=== PATIENT | female | born 1965 | race Caucasian/White ===

== ENCOUNTER 2018-02-20 13:32 | Inpatient (IN) ==
[2018-02-20 14:22] LABS: Hematocrit 40.6 % (35.3-44.9); Hemoglobin 12.3 g/dL (11.5-15.4); Mean Corpuscular HGB Conc 30.3 g/dL (31.6-35.5); Mean Corpuscular Hemoglobin 24.8 pg (28.0-33.3); Mean Platelet Volume 10.4 fL (9.4-12.4); Platelet Count 289 K/mcL (140-400); Red Blood Count 4.95 M/mcL (3.82-4.97); Red Cell Distribution Width 15.6 % (11.5-14.5)
[2018-02-20 14:47] LABS: Troponin I < 0.03 ng/mL (< 0.04)
[2018-02-20] MEDS ORDERED: Ipratropium/Albuterol Neb 3 ML IH ONE (14:49)
[2018-02-20 14:58] LABS: BUN/Creatinine Ratio 8 (6-26); Blood Urea Nitrogen 8 mg/dL (6-20); Calcium 9.3 mg/dL (8.6-10.3); Carbon Dioxide 25 mEq/L (23-29); Chloride 107 mEq/L (98-107); Glucose 126 mg/dL (70-105); Osmolality,Calculated 292 (280-300); Potassium 3.6 mEq/L (3.5-5.1); Sodium 141 mEq/L (136-145); eGFR For Non-African Americans 55 (> 60)
--- NOTE | 2018-02-20 15:05 | Emergency Department Note ---
Disposition Clinical Impression: Cough, Abnormal EKG Chest pain Qualifiers: Chest pain type: unspecified Qualified Code(s): R07.9 - Chest pain, unspecified Disposition: Admitted As Inpatient Condition: Good Time of Disposition: 15:08 SOB HPI - General Chief Complaint: ED Shortness of Breath/Dyspnea Stated Complaint: "cough,sob,wheezing" Time Seen by Provider: 02/20/18 14:12 Source: patient Mode of arrival: ambulatory Limitations: no limitations Nursing Notes Reviewed: Yes Vital Signs Reviewed: Yes - History of Present Illness 53-year-old female persists for evaluation of dyspnea. Patient was at urgent care earlier today and treated for possible pneumonia. Was given nebs, steroids and a prescription for antibiotics. Patient was told to come to the hospital for chest x-ray however the patient checked into the ED. Patient notes 2 weeks of dyspnea with productive cough. Notes chest pain related the cough around the ribs. Patient denies any fevers but does note chills. No nausea or vomiting or diaphoresis. Former smoker. - Related Data Home Medications Medication Instructions Recorded Confirmed Atorvastatin Calcium [Lipitor] 20 mg PO HS 09/22/17 02/20/18 Carbidopa/Levodopa 1 tab PO DAILY 09/22/17 02/20/18 [Carbidopa-Levodopa 25-100 Tab] Cholecalciferol (D-3) [Vitamin D] 1,000 unit PO DAILY 09/22/17 02/20/18 LevETIRAcetam [Keppra] 1,000 mg PO BID 09/22/17 02/20/18 Levothyroxine Sodium 125 mcg PO DAILY 09/22/17 02/20/18 Losartan/Hydrochlorothiazide 1 tab PO DAILY 09/22/17 02/20/18 [Losartan-Hctz 100-25 mg Tab] Metoprolol Succinate [Toprol Xl] 25 mg PO DAILY 09/22/17 02/20/18 Montelukast [Singulair] 10 mg PO HS 09/22/17 02/20/18 [place]-3/Dha/Epa/Fish Oil [[place] 3 1 cap PO DAILY 09/22/17 02/20/18 500 Softgel] Omeprazole [PriLOSEC] 20 mg PO DAILY 09/22/17 02/20/18 Tiotropium [Spiriva] 18 mcg PO DAILY 09/22/17 02/20/18 Topiramate [Topamax] 50 mg PO BID 09/22/17 02/20/18 FLUoxetine HCl [Fluoxetine HCl] 40 mg PO DAILY 02/20/18 02/20/18 Allergies Allergy/AdvReac Type Severity Reaction Status Date / Time No Known Allergies Allergy Verified 02/20/18 16:36 All systems ED: reviewed and negative except as stated. Constitutional: Reports: chills Cardiovascular: Denies: chest pain Respiratory: Reports: cough, dyspnea, sputum production Gastrointestinal: Denies: abdominal pain, nausea, vomiting Past Medical History - Past Medical History Source: patient Medical history: Reports: COPD, CVA, GERD, hypertension, seizures Surgical history: Reports: appendectomy, Psychiatric history: Reports: anxiety - Social History Smoking Status: Current every day smoker Smokeless Tobacco Status: No Alcohol use: Reports: occasionally Drug use: Reports: none Physical Exam - General Limitations: no limitations General appearance: alert, in no apparent distress - Head Head exam: atraumatic, normocephalic, normal inspection - Eye Eye exam: Present: normal appearance, PERRL, EOMI - ENT ENT exam: normal exam, mucous membranes moist - Neck Neck exam: Present: normal inspection - Chest Chest inspection: Present: normal inspection, symmetric chest wall rise - Respiratory Respiratory exam: Present: wheezes, prolonged expiratory phase. Absent: respiratory distress - Cardiovascular Cardiovascular exam: Present: regular rate, normal rhythm - Abdominal Exam Abdominal exam: Present: soft, Non-Tender - Extremities Exam Extremities exam: Present: normal inspection. Absent: pedal edema - Expanded Lower Extremity Exam Neurovascular/Tendon exam: Present: normal capillary refill - Neurological Exam Neurological exam: Present: alert, oriented X3 - Skin Skin exam: Present: warm, dry, intact, normal color Course Course Narrative: Patient seen and examined. Patient's in no acute distress. Triage labs were ordered. Patient likely has acute bronchitis. Will be given nebs, steroids and antibiotics. Disposition to follow-up with her primary care doctor. - Reevaluation(s) Reevaluation #1: Patient's resting comfortably. Outpatient plan of care discussed with her. Patient will be discharged with instructions to follow-up. Time: 15:41 Reevaluation #2: Patient EKG reviewed show some new T-wave inversions from prior. Given these findings the patient's cough may possibly related to something cardiac. Patient was offered admission. Time: 15:48 Vital Signs Temperature 98.1 F 02/20/18 13:42 Pulse Rate 76 02/20/18 13:42 Respiratory Rate 20 02/20/18 13:42 Blood Pressure 183/98 02/20/18 13:42 O2 Sat by Pulse Oximetry 92 02/20/18 13:42 Temperature 98.1 F 02/20/18 15:08 Pulse Rate 86 02/20/18 16:25 Respiratory Rate 16 02/20/18 17:38 Blood Pressure 139/81 02/20/18 17:38 O2 Sat by Pulse Oximetry 94 02/20/18 16:25 Oxygen Delivery Oxygen Delivery Nasal Cannula Shortness of Breath/Dyspnea - [facility] Narrative Medical decision making narrative: Patient presents for concerns of cough and shortness of breath. Patient's symptoms are most likely consistent with bronchitis. Given the patient's productive sputum patient will be started on antibiotics. Recommend aerosols, steroids as well as antibiotics. This point the patient's had an unremarkable ED evaluation. Patient does not have pneumonia on chest x-ray. Low suspicion or concern for ACS or PE. Patient's appropriate for discharge home with primary care physician follow-up. Patient does have oxygen available at home that she wears at night. - Lab Data Lab results reviewed: Yes I reviewed the patient's lab results. Result diagrams: 02/20/18 14:08 02/20/18 14:08 Lab Results 02/20/18 02/20/18 02/20/18 Range/Units 14:08 14:08 14:08 WBC 11.5 H (4.3-11.1) K/mcL RBC 4.95 (3.82-4.97) M/mcL Hgb 12.3 (11.5-15.4) g/dL Hct 40.6 (35.3-44.9) % MCV 82.0 L (83.0-100.0) fL MCH 24.8 L (28.0-33.3) pg MCHC 30.3 L (31.6-35.5) g/dL RDW 15.6 H (11.5-14.5) % Plt Count 289 (140-400) K/mcL MPV 10.4 (9.4-12.4) fL Sodium 141 (136-145) mEq/L Potassium 3.6 (3.5-5.1) mEq/L Chloride 107 (98-107) mEq/L Carbon Dioxide 25 (23-29) mEq/L BUN 8 (6-20) mg/dL Creatinine 1.04 (0.60-1.20) mg/dL Est GFR ( Amer) > 60 (> 60) Est GFR (Non-Af Amer) 55 L (> 60) BUN/Creatinine Ratio 8 (6-26) Glucose 126 H (70-105) mg/dL Calculated Osmolality 292 (280-300) Lactic Acid 0.9 (0.5-2.2) mmol/L Calcium 9.3 (8.6-10.3) mg/dL Troponin I < 0.03 (< 0.04) ng/mL B-Natriuretic Peptide (Less than 100) pg/mL 02/20/18 Range/Units 14:08 WBC (4.3-11.1) K/mcL RBC (3.82-4.97) M/mcL Hgb (11.5-15.4) g/dL Hct (35.3-44.9) % MCV (83.0-100.0) fL MCH (28.0-33.3) pg MCHC (31.6-35.5) g/dL RDW (11.5-14.5) % Plt Count (140-400) K/mcL MPV (9.4-12.4) fL Sodium (136-145) mEq/L Potassium (3.5-5.1) mEq/L Chloride (98-107) mEq/L Carbon Dioxide (23-29) mEq/L BUN (6-20) mg/dL Creatinine (0.60-1.20) mg/dL Est GFR ( Amer) (> 60) Est GFR (Non-Af Amer) (> 60) BUN/Creatinine Ratio (6-26) Glucose (70-105) mg/dL Calculated Osmolality (280-300) Lactic Acid (0.5-2.2) mmol/L Calcium (8.6-10.3) mg/dL Troponin I (< 0.04) ng/mL B-Natriuretic Peptide 63 (Less than 100) pg/mL - Radiology Data Radiology results reviewed: Yes I reviewed the patient's radiology results. Chest X-Ray 02/20/18 13:45 IMPRESSION: No evidence of acute cardiopulmonary disease. D/ / Evelio Louis MD / Evelio Louis MD Interpreting Provider: Evelio Louis MD - EKG Data EKG attestation: Yes I reviewed and interpreted this EKG. EKG shows normal: Reports: sinus rhythm Rate: Reports: normal Rhythm: Reports: NSR [place]/QRS: Reports: normal T wave inversions noted in: Reports: v1, v2, v3, v4 When compared to previous EKG there are: changes noted S.B.ASal - Jose Juan Situation: Demographics Background: Presenting Complaint Assessment: Vital Signs, Course and respsone to treatment, Patient/Family Expectation Recommendation: Barrier(s) to disposition, Recommendation based on pending studies, treatments, or consults S.B.ASal Report Given to: Dr. Janusz Manzano Repor Time: 16:56
--- NOTE | 2018-02-20 15:52 | Emergency Department Note ---
Disposition Clinical Impression: Cough, Abnormal EKG, Chest pain Disposition: Admitted As Inpatient Condition: Good General Adult HPI - General Chief complaint: ED Shortness of Breath/Dyspnea Stated complaint: "cough,sob,wheezing" Time Seen by Provider: 02/20/18 14:12 Source: patient Mode of arrival: ambulatory Limitations: no limitations - History of Present Illness Pain Scale: 7 - Related Data Home Medications Medication Instructions Recorded Confirmed Atorvastatin Calcium [Lipitor] 20 mg PO HS 09/22/17 02/20/18 Carbidopa/Levodopa 1 tab PO DAILY 09/22/17 02/20/18 [Carbidopa-Levodopa 25-100 Tab] Cholecalciferol (D-3) [Vitamin D] 1,000 unit PO DAILY 09/22/17 02/20/18 LevETIRAcetam [Keppra] 1,000 mg PO BID 09/22/17 02/20/18 Levothyroxine Sodium 125 mcg PO DAILY 09/22/17 02/20/18 Losartan/Hydrochlorothiazide 1 tab PO DAILY 09/22/17 02/20/18 [Losartan-Hctz 100-25 mg Tab] Metoprolol Succinate [Toprol Xl] 25 mg PO DAILY 09/22/17 02/20/18 Montelukast [Singulair] 10 mg PO HS 09/22/17 02/20/18 [place]-3/Dha/Epa/Fish Oil [[place] 3 1 cap PO DAILY 09/22/17 02/20/18 500 Softgel] Omeprazole [PriLOSEC] 20 mg PO DAILY 09/22/17 02/20/18 Tiotropium [Spiriva] 18 mcg PO DAILY 09/22/17 02/20/18 Topiramate [Topamax] 50 mg PO BID 09/22/17 02/20/18 FLUoxetine HCl [Fluoxetine HCl] 40 mg PO DAILY 02/20/18 02/20/18 Allergies Allergy/AdvReac Type Severity Reaction Status Date / Time No Known Allergies Allergy Verified 02/20/18 16:36 Constitutional: Reports: chills Cardiovascular: Denies: chest pain Respiratory: Reports: cough, dyspnea, sputum production Gastrointestinal: Denies: abdominal pain, nausea, vomiting Past Medical History - Past Medical History Medical history: Reports: COPD, CVA, GERD, hypertension, seizures Surgical history: Reports: appendectomy, Psychiatric history: Reports: anxiety - Social History Smoking Status: Current every day smoker Smokeless Tobacco Status: No Alcohol use: Reports: occasionally Drug use: Reports: none Physical Exam - General Limitations: no limitations General appearance: alert, in no apparent distress Course Vital Signs Temperature 98.1 F 02/20/18 13:42 Pulse Rate 76 02/20/18 13:42 Respiratory Rate 20 02/20/18 13:42 Blood Pressure 183/98 02/20/18 13:42 O2 Sat by Pulse Oximetry 92 02/20/18 13:42 Temperature 98.1 F 02/20/18 15:08 Pulse Rate 86 02/20/18 16:25 Respiratory Rate 16 02/20/18 17:38 Blood Pressure 139/81 02/20/18 17:38 O2 Sat by Pulse Oximetry 94 02/20/18 16:25 Oxygen Delivery Oxygen Delivery Nasal Cannula Medical Decision Making - Lab Data Result diagrams: 02/20/18 14:08 02/20/18 14:08 Lab Results 02/20/18 02/20/18 02/20/18 Range/Units 14:08 14:08 14:08 WBC 11.5 H (4.3-11.1) K/mcL RBC 4.95 (3.82-4.97) M/mcL Hgb 12.3 (11.5-15.4) g/dL Hct 40.6 (35.3-44.9) % MCV 82.0 L (83.0-100.0) fL MCH 24.8 L (28.0-33.3) pg MCHC 30.3 L (31.6-35.5) g/dL RDW 15.6 H (11.5-14.5) % Plt Count 289 (140-400) K/mcL MPV 10.4 (9.4-12.4) fL Sodium 141 (136-145) mEq/L Potassium 3.6 (3.5-5.1) mEq/L Chloride 107 (98-107) mEq/L Carbon Dioxide 25 (23-29) mEq/L BUN 8 (6-20) mg/dL Creatinine 1.04 (0.60-1.20) mg/dL Est GFR ( Amer) > 60 (> 60) Est GFR (Non-Af Amer) 55 L (> 60) BUN/Creatinine Ratio 8 (6-26) Glucose 126 H (70-105) mg/dL Calculated Osmolality 292 (280-300) Lactic Acid 0.9 (0.5-2.2) mmol/L Calcium 9.3 (8.6-10.3) mg/dL Troponin I < 0.03 (< 0.04) ng/mL B-Natriuretic Peptide (Less than 100) pg/mL 02/20/18 Range/Units 14:08 WBC (4.3-11.1) K/mcL RBC (3.82-4.97) M/mcL Hgb (11.5-15.4) g/dL Hct (35.3-44.9) % MCV (83.0-100.0) fL MCH (28.0-33.3) pg MCHC (31.6-35.5) g/dL RDW (11.5-14.5) % Plt Count (140-400) K/mcL MPV (9.4-12.4) fL Sodium (136-145) mEq/L Potassium (3.5-5.1) mEq/L Chloride (98-107) mEq/L Carbon Dioxide (23-29) mEq/L BUN (6-20) mg/dL Creatinine (0.60-1.20) mg/dL Est GFR ( Amer) (> 60) Est GFR (Non-Af Amer) (> 60) BUN/Creatinine Ratio (6-26) Glucose (70-105) mg/dL Calculated Osmolality (280-300) Lactic Acid (0.5-2.2) mmol/L Calcium (8.6-10.3) mg/dL Troponin I (< 0.04) ng/mL B-Natriuretic Peptide 63 (Less than 100) pg/mL Critical Care Time Critical Care Time: No Attestation Statement - Attestation Attestation: I examined this patient and my medical decision-making was reviewed with the Resident Physician. I agree with the documented findings, disposition and treatment plan as described except to the extent set forth below. Patient to the ED combining a cough. Onset 3 weeks ago. Keeping her up at night. Patient states she went to the urgent care today. She states they were concerned about wanted to do a chest x-ray which they could not do there. They recommended her to come to the ED. On examination she is well appearing sitting on the side of the bed. Lung sounds diminished. Plan. Chest x-ray EKG. Cardiac workup. Patient with changes on her EKG. She has some anteroseptal ST depressions and T -wave inversions. These are new. Patient is having some atypical cardiac symptoms. She is contemplating admission at this time. Patient admitted to medicine.
[2018-02-20] MEDS ORDERED: Aspirin 325 MG TABLET PO ONE (16:29)
[2018-02-20] MEDS ORDERED: Naloxone 0.4 MG/ML INJ IVP PRN (18:06)
[2018-02-20] MEDS ORDERED: Ipratropium/Albuterol Neb 3 ML IH PRN (18:14)
--- NOTE | 2018-02-20 18:21 | Internal Med History&Physical ---
Date of Encounter: 02/20/18 Time of Encounter: 17:30 Internal Medicine - H&P: HPI Chief complaint: Cough Admitted From: Home Plans for Post Hospital Care: Home History of present illness: Ms. Livingston is a 53 year old female with past medical history significant for hypertension, hyperlipidemia, CVA, COPD, asthma, hypothyroidism, depression , and seizures who presents from urgent care to obtain xray for suspected pneumonia. Since she has been having productive cough with green sputum, shortness of breath with wheezing, and sore throat. Denies any chest pain, abdominal pain, diarrhea, nausea, vomiting, diaphoresis, or fever. States she has back pain around her ribs when coughing. Denies any alleviating or exacerbating factors. No home treatment. Received breathing treatment in ER which she states greatly improved her symptoms. ER planned to discharge patient as they reported her chest xray without pneumonia but reported her EKG showed new anteroseptal ST depressions and T wave inversions. Patient continues to deny any chest pain. Follows up regularly every six months with neurology Dr Spain for seizures. States she does not think she has had a seizure since September 2017. Discussed patient with Dr Boudreaux. Past Med Surg Social Fam HX - Past Medical History Medical history: asthma, COPD, CVA, GERD, hypertension, seizures, thyroid disease Additional medical history: seasonal alergies,anxiety,hypothyroidism,obesity, cervical/neck pain C2-3-4 fused together,O2@2L nc at night Psychiatric history: anxiety, depression - Past Surgical History Surgical History: appendectomy, Additional surgical history: carpal tunnel surgery right,cyst removal left, wisdom teeth extraction,D&C,teeth extraction - Social History Smoking Status: Former smoker Smokeless Tobacco Status: No Alcohol use: rarely Drug use: none Internal Medicine - H&P: Meds Atorvastatin Calcium [Lipitor] 20 mg PO HS 09/22/17 [History] Carbidopa/Levodopa [Carbidopa-Levodopa 25-100 Tab] 1 tab PO DAILY 09/22/17 [ History] Cholecalciferol (D-3) [Vitamin D] 1,000 unit PO DAILY 09/22/17 [History] LevETIRAcetam [Keppra] 1,000 mg PO BID 09/22/17 [History] Levothyroxine Sodium 125 mcg PO DAILY 09/22/17 [History] Losartan/Hydrochlorothiazide [Losartan-Hctz 100-25 mg Tab] 1 tab PO DAILY [History] Metoprolol Succinate [Toprol Xl] 25 mg PO DAILY 09/22/17 [History] Montelukast [Singulair] 10 mg PO HS 09/22/17 [History] [place]-3/Dha/Epa/Fish Oil [[place] 3 500 Softgel] 1 cap PO DAILY 09/22/17 [History] Omeprazole [PriLOSEC] 20 mg PO DAILY 09/22/17 [History] Tiotropium [Spiriva] 18 mcg PO DAILY 09/22/17 [History] Topiramate [Topamax] 50 mg PO BID 09/22/17 [History] FLUoxetine HCl [Fluoxetine HCl] 40 mg PO DAILY 02/20/18 [History] 3 Allergy/AdvReac Type Severity Reaction Status Date / Time No Known Allergies Allergy Verified 02/20/18 16:36 All Systems PM: A 10-system review of systems was performed and is negative for pertinent findings except as documented above in the HPI. - Constitutional Vitals: Temp Pulse Resp BP Pulse Ox 98.1 F 86 16 139/81 94 02/20/18 15:08 02/20/18 16:25 02/20/18 17:38 02/20/18 17:38 02/20/18 16:25 Exam: General: Alert and oriented. Skin:Normal color, no rash, no lesions. HEENT:Pupils equal, round and reactive. Cardiovascular:Normal S1 & S2, no rubs, murmurs or gallops. No JVD. Pulse regular. Lungs:Breath sounds decreased throughout with wheezing noted in bilateral lung bases. No crackles. Respirations unlabored. Abdomen:Soft, non-tender, no rigidity. Extremities:No deformity, edema, tenderness, or clubbing. Neurological:Normal cognition and motor skills. Pulses:Carotid and radial pulses normal +2. Rest of the physical exam is non contributory. Internal Med - H&P Results - Labs CBC & Chem 7: 02/20/18 14:08 02/20/18 14:08 - Assessment and plan (1) Abnormal EKG Current Visit: Yes Status: Acute Assessment and plan: ER reported new anteroseptal ST depression and T wave inversions. Continuous air sampling and monitoring. Initial troponin in ER negative, serial troponins ordered. Stress test in a.m. (2) Bronchitis Current Visit: Yes Status: Acute Assessment and plan: Duonebs as needed. Doxycycline PO BID. Prednisone daily. Oxygen as needed to maintain saturations greater than 92%. (3) Increased white blood cell count Current Visit: Yes Status: Acute Assessment and plan: Repeat labs in a.m. Qualifiers: Leukocytosis type: unspecified Qualified Code(s): D72.829 - Elevated white blood cell count, unspecified - Time Spent With Patient Total time spent is greater than 50% in coordination of care (as documented) at patient's floor/unit and/or counseling patient:
[2018-02-20] MEDS: Doxycycline 100 MG CAPSULE PO SCH (19:56)
[2018-02-20] MEDS: levETIRAcetam 250 MG TABLET PO SCH (19:56)
[2018-02-20] MEDS: Topiramate 25 MG TABLET PO SCH (19:57)
[2018-02-20] MEDS ORDERED: Tiotropium 18 MCG inhalation IH SCH (20:47)
[2018-02-20] MEDS: Tiotropium 18 MCG inhalation IH SCH (22:24)
[2018-02-21 01:17] LABS: Basophils # 0.1 K/mcL (0.0-0.2); Basophils % 0.4 %; Hematocrit 39.4 % (35.3-44.9); Hemoglobin 12.6 g/dL (11.5-15.4); Immature Granulocytes % 0.5 % (0-4); Lymphocytes # 1.7 K/mcL (0.6-4.6); Mean Corpuscular Hemoglobin 25.8 pg (28.0-33.3); Mean Corpuscular Volume 80.6 fL (83.0-100.0); Monocytes # 0.4 K/mcL (0.0-1.3); Monocytes % 3.8 %; Platelet Count 291 K/mcL (140-400); Red Blood Count 4.89 M/mcL (3.82-4.97); Red Cell Distribution Width 15.5 % (11.5-14.5); Segmented Neutrophils % 80.3 %
[2018-02-21 01:34] LABS: BUN/Creatinine Ratio 9 (6-26); Blood Urea Nitrogen 9 mg/dL (6-20); Calcium 9.4 mg/dL (8.6-10.3); Carbon Dioxide 23 mEq/L (23-29); Chloride 109 mEq/L (98-107); Glucose 136 mg/dL (70-105); Osmolality,Calculated 289 (280-300); Potassium 4.2 mEq/L (3.5-5.1); Sodium 139 mEq/L (136-145); eGFR For Non-African Americans 59 (> 60)
[2018-02-21 02:26] LABS: Hypochromasia Present (Not Present); Platelet Estimate Normal (Normal)
[2018-02-21] MEDS ORDERED: Regadenoson 0.4 MG/5 ML SYRINGE IVP ONE (05:43)
[2018-02-21] MEDS: *HR* Heparin 5,000 UNIT/ML VIAL SQ SCH ×2 (05:45→18:52)
[2018-02-21] MEDS ORDERED: NON-FORMULARY MEDICATION 1 EACH EACH (Omega-3/Dha/Epa/Fish Oil [Omega 3 500 Softgel] 1 CAP PO SCH (09:00)
[2018-02-21] MEDS: Topiramate 25 MG TABLET PO SCH ×2 (09:42→21:08)
[2018-02-21] MEDS: levETIRAcetam 250 MG TABLET PO SCH ×2 (09:43→21:06)
[2018-02-21] MEDS: Doxycycline 100 MG CAPSULE PO SCH ×2 (09:43→21:06)
[2018-02-21] MEDS: Metoprolol XL (24 HR) Succ 25 MG TAB.ER.24H PO SCH (09:43)
[2018-02-21] MEDS: predniSONE 20 MG TABLET PO SCH (09:43)
[2018-02-21] MEDS: Cholecalciferol (D-3) 1,000 UNIT TABLET PO SCH (09:44)
[2018-02-21] MEDS: Carbidopa/Levodopa 25/100 TABLET PO SCH (09:44)
[2018-02-21] MEDS: Losartan/HCTZ 50-12.5 TABLET PO SCH (09:44)
[2018-02-21] MEDS: FLUoxetine 20 MG CAPSULE PO SCH (09:49)
[2018-02-21] MEDS ORDERED: Tiotropium 18 MCG inhalation IH SCH (10:00)
[2018-02-21] MEDS: Fluticasone Propionate Nasal 50 MCG/SPRAY BOTTLE NS SCH (13:27)
[2018-02-21] MEDS ORDERED: GuaiFENesin/Codeine Oral Soln 5 ML UDC PO PRN (14:26)
--- NOTE | 2018-02-21 14:34 | Internal Med Progress Note ---
Hospitalist Progress Note - Encounter Date of Encounter: 02/21/18 Time of Encounter: 10:50 - Subjective Interval History: Patient was seen and assessed at bedside at 10:50 AM. She denies chest pain but does report bilateral anterior repeat from coughing. She reports a nonproductive dry, hacking cough for 1-1/2 weeks. Patient is requesting 0 tach , clear to was ordered. She is also being given Mucinex. First day stress test completed today, second day will be tomorrow. She denies fever, chills, nausea, vomiting, abdominal pain. She does have peripheral edema, +1 nonpitting , she states this is normal for her. - Exam Vitals: Temp Pulse Resp BP Pulse Ox 97.7 F 68 20 127/74 92 02/21/18 11:29 02/21/18 11:29 02/21/18 11:29 02/21/18 11:29 02/21/18 11:29 Exam: General: Pt resting quietly on bed, no distress. Skin: pwd, no rashes, lesions, redness Neurological: Pt is alert and awake, oriented x 3, Speech is clear, PERRLA, EOMI , no nystagmus, no pronator drift. strength equal x 4 extremities HEENT: mucous mumbranes moist, no conjuctival pallor Neck: supple, no tracheal deviation, no lymphadenopathy, tenderness, no thyromegaly Heart: S1S2 heard without gallops, clicks, murmurs, no bradycardia or tachycardia, pt has no peripheral edema, pedal and radial pulses palpable bilaterally. Lungs: clear throughout without wheezing, rales, or ronchi, respirations are unlabored, lungs sounds diminished. Abdomen: soft and non tender with bowel sound present, no hepatomegaly. Psych: Normal affect with good eye contact - Assessment and Plan (1) Abnormal EKG Current Visit: Yes Status: Acute Assessment and Plan: ER reported new anteroseptal ST depression and T wave inversions on EKG. Patient denies chest pain. Troponin is negative 3. Pt is a 2 day stress test. Chest pain is likely related to bronchitis. Continue telemetry Stress test in a.m. Continue to monitor labs and vitals. (2) Bronchitis Current Visit: Yes Status: Acute Assessment and Plan: Likely cause of chest pain. Duonebs as needed. Doxycycline PO BID. Prednisone daily. Oxygen as needed to maintain saturations greater than 92%. Mucinex for cough, Guaifenesin with codeine x 1 dose for sleep at night prn. (3) Increased white blood cell count Current Visit: Yes Status: Acute Assessment and Plan: unclear etiology. CXR negative for acute process. Pt is not on steroids. She is afebrile, vitals are stable and WNL. Continue to trend labs and monitor vitals and pt condition. - Time Spent with Patient Total time spent is greater than 50% in coordination of care (as documented) at patient's floor/unit and/or counseling patient: less than 15 minutes Plan of Care Discussed with: patient Internal Medicine: Result - Labs CBC & Chem 7: 02/21/18 00:49 02/21/18 00:49 Labs: Short CBC 02/21/18 Range/Units 00:49 WBC 11.2 H (4.3-11.1) K/mcL Hgb 12.6 (11.5-15.4) g/dL Hct 39.4 (35.3-44.9) % Plt Count 291 (140-400) K/mcL Neutrophils # 9.0 H (1.6-8.9) K/mcL BMP 02/21/18 00:49 Sodium 139 Potassium 4.2 Chloride 109 H Carbon Dioxide 23 BUN 9 Creatinine 0.99 Glucose 136 H Calcium 9.4 Cardiac Enzymes 02/20/18 02/21/18 Range/Units 19:52 00:49 Troponin I < 0.03 < 0.03 (< 0.04) ng/mL Consult Discharge Plan - Plan Referrals: Anibal Recinos MD [Primary Care Provider] - 03/02/18 2:00 pm (Requested a follow up appoinment in 7- 10 days with Anibal Denny. ) (3) Increased white blood cell count Qualifiers: Leukocytosis type: unspecified Qualified Code(s): D72.829 - Elevated white blood cell count, unspecified
[2018-02-21] MEDS: Loratadine 10 MG TABLET PO SCH (16:17)
[2018-02-21] MEDS: Tiotropium 18 MCG inhalation IH SCH (20:32)
[2018-02-21] MEDS ORDERED: GuaiFENesin/Codeine Oral Soln 5 ML UDC PO ONE (21:00)
[2018-02-22] MEDS: *HR* Heparin 5,000 UNIT/ML VIAL SQ SCH ×2 (05:37→17:25)
[2018-02-22] MEDS: levETIRAcetam 250 MG TABLET PO SCH ×2 (08:35→20:35)
[2018-02-22] MEDS: Carbidopa/Levodopa 25/100 TABLET PO SCH (08:35)
[2018-02-22] MEDS: Topiramate 25 MG TABLET PO SCH ×2 (08:35→20:35)
[2018-02-22] MEDS: Losartan/HCTZ 50-12.5 TABLET PO SCH (08:35)
[2018-02-22] MEDS: Doxycycline 100 MG CAPSULE PO SCH ×2 (08:35→20:35)
[2018-02-22] MEDS: Loratadine 10 MG TABLET PO SCH (08:36)
[2018-02-22] MEDS: predniSONE 20 MG TABLET PO SCH (08:36)
[2018-02-22] MEDS: Metoprolol XL (24 HR) Succ 25 MG TAB.ER.24H PO SCH (08:36)
[2018-02-22] MEDS: Fluticasone Propionate Nasal 50 MCG/SPRAY BOTTLE NS SCH (08:36)
[2018-02-22] MEDS: FLUoxetine 20 MG CAPSULE PO SCH (08:36)
[2018-02-22] MEDS: Cholecalciferol (D-3) 1,000 UNIT TABLET PO SCH (08:36)
--- NOTE | 2018-02-22 09:17 | Internal Med Progress Note ---
Hospitalist Progress Note - Encounter Date of Encounter: 02/22/18 Time of Encounter: 09:16 - Exam Vitals: Temp Pulse Resp BP Pulse Ox 98.5 F 58 18 125/80 92 02/22/18 07:30 02/22/18 07:30 02/22/18 07:30 02/22/18 07:30 02/22/18 07:30 Exam: General: Pt resting quietly on bed, no distress. Skin: pwd, no rashes, lesions, redness Neurological: Pt is alert and awake, oriented x 3, Speech is clear, PERRLA, EOMI , no nystagmus, no pronator drift. strength equal x 4 extremities HEENT: mucous mumbranes moist, no conjuctival pallor Neck: supple, no tracheal deviation, no lymphadenopathy, tenderness, no thyromegaly Heart: S1S2 heard without gallops, clicks, murmurs, no bradycardia or tachycardia, pt has no peripheral edema, pedal and radial pulses palpable bilaterally. Lungs: clear throughout without wheezing, rales, or ronchi, respirations are unlabored, lungs sounds diminished. Abdomen: soft and non tender with bowel sound present, no hepatomegaly. Psych: Normal affect with good eye contact - Assessment and Plan (1) Abnormal EKG Current Visit: Yes Status: Acute Assessment and Plan: ER reported new anteroseptal ST depression and T wave inversions on EKG. Patient denies chest pain. Troponin is negative 3. Continue telemetry Stress test abnormal - cardiology consulted - will obtain repeat EKG Continue to monitor labs and vitals. (2) Increased white blood cell count Current Visit: Yes Status: Acute Assessment and Plan: unclear etiology. CXR negative for acute process. Pt is not on steroids. 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 (3) Abnormal stress test Current Visit: Yes Status: Acute Assessment and Plan: 1 Underwent 2 day stress test for abnormal ECG--perfusion study negative for infarct. Reversible mild low intensity perfusion defect in apical/mid anterior/ anterolateral wall with low SDS score (2) suggests either artifact or minimal ischemia.-consulted cardiology C vs medical management of mildly abnormal stress test. cont Statin and BB. Add 81mg daily ASA. - currently has pneumonia will need to resolve before stress test can be performed EKG, Echo (4) PNA (pneumonia) Current Visit: Yes Status: Acute Assessment and Plan: 1 Initially treated for bronchitis on Doxycycline- resp panel positive for Chlamydophila pneumonia - CXR negative elevated white count Will con with doxycycline has cough chills - Time Spent with Patient Total time spent is greater than 50% in coordination of care (as documented) at patient's floor/unit and/or counseling patient: Internal Medicine: Result - Labs CBC & Chem 7: 02/22/18 10:16 02/22/18 10:16 Consult Discharge Plan - Plan Referrals: Anibal Recinos MD [Primary Care Provider] - 03/02/18 2:00 pm (Requested a follow up appoinment in 7- 10 days with Anibal Denny. ) (2) Increased white blood cell count Qualifiers: Leukocytosis type: unspecified Qualified Code(s): D72.829 - Elevated white blood cell count, unspecified (4) PNA (pneumonia) Qualifiers: Pneumonia type: due to unspecified organism Laterality: unspecified laterality Lung location: unspecified part of lung Qualified Code(s): J18.9 - Pneumonia, unspecified organism
[2018-02-22 10:38] LABS: Basophils # 0.1 K/mcL (0.0-0.2); Basophils % 0.7 %; Eosinophils # 0.2 K/mcL (0.0-0.6); Hematocrit 42.5 % (35.3-44.9); Hemoglobin 13.1 g/dL (11.5-15.4); Immature Granulocytes % 0.5 % (0-4); Lymphocytes # 4.3 K/mcL (0.6-4.6); Lymphocytes % 27.8 %; Mean Corpuscular HGB Conc 30.8 g/dL (31.6-35.5); Mean Corpuscular Hemoglobin 25.2 pg (28.0-33.3); Mean Corpuscular Volume 81.9 fL (83.0-100.0); Mean Platelet Volume 10.6 fL (9.4-12.4); Monocytes # 0.9 K/mcL (0.0-1.3); Platelet Count 299 K/mcL (140-400); Red Blood Count 5.19 M/mcL (3.82-4.97); Red Cell Distribution Width 15.8 % (11.5-14.5)
[2018-02-22 11:30] LABS: Calcium 9.5 mg/dL (8.6-10.3); Potassium 3.8 mEq/L (3.5-5.1)
[2018-02-22 11:43] LABS: Adenovirus Not Detected (Not Detect); Bordetella Pertussis Not Detected (Not Detect); Chlamydophila pneumoniae DETECTED (Not Detect); Coronavirus 229E Not Detected (Not Detect); Coronavirus HKU1 Not Detected (Not Detect); Coronavirus NL63 Not Detected (Not Detect); Coronavirus OC43 Not Detected (Not Detect); Human Metapneumovirus Not Detected (Not Detect); Human Rhinovirus/Enterovirus Not Detected (Not Detect); Influenza A Subtype 2009 H1 Not Detected (Not Detect); Influenza A Untypeable Not Detected (Not Detect); Influenza B Not Detected (Not Detect); Mycoplasma pneumoniae Not Detected (Not Detect); Parainfluenza Virus 1 Not Detected (Not Detect); Parainfluenza Virus 2 Not Detected (Not Detect); Parainfluenza Virus 3 Not Detected (Not Detect); Parainfluenza Virus 4 Not Detected (Not Detect); Respiratory Syncytial Virus Not Detected (Not Detect)
[2018-02-22] MEDS: 0.9 % Sodium Chloride 1,000 ML IVC SCH (13:42)
--- NOTE | 2018-02-22 14:25 | Cardiology Consult Note ---
Date of Encounter: 02/22/18 Time of Encounter: 14:20 Assessment and Plan (1) Abnormal stress test Current Visit: Yes Status: Acute Underwent 2 day stress test for abnormal ECG--perfusion study negative for infarct. Reversible mild low intensity perfusion defect in apical/mid anterior/ anterolateral wall with low SDS score (2) suggests either artifact or minimal ischemia. Risk factors for CAD include HTN, HLD, obesity, family hx--father from [place] at age 57. Serology positive for chladmydophila pneumoniae. Leukocytosis--WBC 15.6. Creatinine 1.23 today. Recheck labs in AM. Check TTE. Discussed LHC vs medical management of mildly abnormal stress test. Will re- evaluate in AM to determine final plan of inpt LHC vs medical management with close outpt follow-up. Pt on Statin and BB. Add 81mg daily ASA. Continue to follow. (2) Abnormal EKG Current Visit: Yes Status: Acute EKG with new ST depression/inversions. Will repeat ECG. Denies chest pain, but reported bilateral arm pain prior to admission. Underwent 2 day stress test today--suggests either artifact or minimal ischemia. Check TTE. Re-evaluate in AM. (3) PNA (pneumonia) Current Visit: Yes Status: Acute CXR negative. Presented with productive cough and dyspnea, chills. Serology positive for chlamydophila pneumoniae. WBC increased to 15.6 today. Creatinine 1.23. Management per primary team. Qualifiers: Pneumonia type: due to unspecified organism Laterality: unspecified laterality Lung location: unspecified part of lung Qualified Code(s): J18.9 - Pneumonia, unspecified organism Discussion w patient/family: The assessment and plan as outlined above was discussed with the patient and/or family members who expressed understanding and agreement. All questions were answered. Thank you for involving us in the care of your patient. Please call with any questions. I will discuss all the above with Dr. Cantor and make changes as necessary. History of Present Illness Consult date: 02/22/18 Requesting physician: Jillian Yanez Consult reason: Abnormal stress test Chief complaint: cough, dyspnea History of present illness: Ms. Livingston is a 53 year old female with PMH significant for hypertension, hyperlipidemia, CVA, COPD, asthma, hypothyroidism, depression, and seizures who presented from urgent care to obtain xray for suspected pneumonia. Since last Tuesday she has been having productive cough with green sputum, shortness of breath with wheezing, and sore throat. Denies any chest pain, but did have bilateral arm pain and states she has back pain around her ribs when coughing. Received breathing treatment in ER which she states greatly improved her symptoms. ER planned to discharge patient, but her EKG showed new anteroseptal ST depressions and T wave inversions and she was admitted for further testing. Troponins negative x 3. Underwent 2 day stress test--perfusion study negative for infarct. Reversible mild low intensity perfusion defect in apical/mid anterior/anterolateral wall with low SDS score (2) suggests either artifact or minimal ischemia. Gated EF >70%. Serology resulted--positive for chlamydophila pneumoniae. WBC increased to 15.6 today. Creatinine 1.23. Cardiology consulted for further recs. Past Med Surg Social Fam HX - Past Medical History Medical history: asthma, COPD, CVA, GERD, hypertension, seizures, thyroid disease Additional medical history: seasonal alergies,anxiety,hypothyroidism,obesity, cervical/neck pain C2-3-4 fused together,O2@2L nc at night Psychiatric history: anxiety, depression - Past Surgical History Surgical History: appendectomy, Additional surgical history: carpal tunnel surgery right,cyst removal left, wisdom teeth extraction,D&C,teeth extraction - Social History Smoking Status: Former smoker Smokeless Tobacco Status: No Alcohol use: rarely Drug use: none - Family History Mother History Unknown: Yes Medications and Allergies Atorvastatin Calcium [Lipitor] 20 mg PO HS 09/22/17 [History] Carbidopa/Levodopa [Carbidopa-Levodopa 25-100 Tab] 1 tab PO DAILY 09/22/17 [ History] Cholecalciferol (D-3) [Vitamin D] 1,000 unit PO DAILY 09/22/17 [History] LevETIRAcetam [Keppra] 1,000 mg PO BID 09/22/17 [History] Levothyroxine Sodium 125 mcg PO DAILY 09/22/17 [History] Losartan/Hydrochlorothiazide [Losartan-Hctz 100-25 mg Tab] 1 tab PO DAILY [History] Metoprolol Succinate [Toprol Xl] 25 mg PO DAILY 09/22/17 [History] Montelukast [Singulair] 10 mg PO HS 09/22/17 [History] [place]-3/Dha/Epa/Fish Oil [[place] 3 500 Softgel] 1 cap PO DAILY 09/22/17 [History] Omeprazole [PriLOSEC] 20 mg PO DAILY 09/22/17 [History] Tiotropium [Spiriva] 18 mcg PO DAILY 09/22/17 [History] Topiramate [Topamax] 50 mg PO BID 09/22/17 [History] FLUoxetine HCl [Fluoxetine HCl] 40 mg PO DAILY 02/20/18 [History] 3 Allergy/AdvReac Type Severity Reaction Status Date / Time No Known Allergies Allergy Verified 02/20/18 16:36 All Systems Review: The remainder of the systems were reviewed and are negative - Cardiovascular Cardiovascular: as per HPI, dyspnea at rest, dyspnea on exertion, radiating jaw , neck or arm pain - Respiratory Respiratory: cough, dyspnea, wheezing Physical Examination Vital Signs, Last 4 Hours Temp Pulse Resp BP Pulse Ox 02/22/18 11:31 98.7 F 68 19 144/85 90 Vital Signs Temp Pulse Resp BP Pulse Ox 02/22/18 11:31 98.7 F 68 19 144/85 90 02/22/18 07:30 98.5 F 58 18 125/80 92 02/22/18 02:58 98.6 F 56 16 117/70 90 02/21/18 22:52 97.9 F 71 16 122/62 91 02/21/18 20:33 20 91 02/21/18 18:59 98.0 F 79 16 115/71 90 02/21/18 15:15 98.1 F 79 18 120/76 94 Intake and Output 02/21/18 02/22/18 02/22/18 23:59 07:59 15:59 Intake Total 120 / 120 Balance 120 / 120 Intake: Oral 120 / 120 Other: Meal Lunch Percent of Meal Consumed 100% Weight 132.2 kg Patient Weight 02/22/18 23:59 Weight 132.2 kg General: Conversant, No Apparent Distress HEENT: Atraumatic, Normocephaly, Mucus Membranes Moist Neck: No JVD, Normal carotid pulses Cardiac: Reg Rate and Rhythm, Normal S1 and S2, No Murmur Lungs: Other (diminished) Neuro: Alert and responsive, No focal deficits noted Abdomen: Soft, Non-Tender Skin: No rashes noted on visualized skin Musculoskeletal: No Chest Wall Tenderness Extremities: No Clubbing, No Cyanosis, No Edema, Normal Pulses Results 02/22/18 10:16 02/22/18 10:16 Lab Results 02/22/18 02/22/18 10:16 10:16 WBC 15.6 H Hgb 13.1 Hct 42.5 Plt Count 299 Sodium 139 Potassium 3.8 Chloride 104 Carbon Dioxide 27 BUN 14 Creatinine 1.23 H Glucose 104 Calcium 9.5 Short CBC 02/22/18 Range/Units 10:16 WBC 15.6 H (4.3-11.1) K/mcL Hgb 13.1 (11.5-15.4) g/dL Hct 42.5 (35.3-44.9) % Plt Count 299 (140-400) K/mcL Neutrophils # 10.0 H (1.6-8.9) K/mcL BMP 02/22/18 Range/Units 10:16 Sodium 139 (136-145) mEq/L Potassium 3.8 (3.5-5.1) mEq/L Chloride 104 (98-107) mEq/L Carbon Dioxide 27 (23-29) mEq/L BUN 14 (6-20) mg/dL Creatinine 1.23 H (0.60-1.20) mg/dL Glucose 104 (70-105) mg/dL Calcium 9.5 (8.6-10.3) mg/dL Active Medications Albuterol/Ipratropium (Duoneb) 3 ml IH [id number] PRN PRN Reason: Shortness Of Breath/Wheezing Stop: 08/22/18 18:15 Last Admin: 02/21/18 11:32 Dose: 3 ml Atorvastatin Calcium (Lipitor) 20 mg PO HS [facility] Stop: 08/22/18 21:01 Last Admin: 02/21/18 21:07 Dose: 20 mg Carbidopa/Levodopa (Sinemet) 1 each PO DAILY [facility] Stop: 08/23/18 09:01 Last Admin: 02/22/18 08:35 Dose: 1 each Doxycycline Hyclate (Doxycycline) 100 mg PO BID [facility] Stop: 08/22/18 21:01 Last Admin: 02/22/18 08:35 Dose: 100 mg Fluoxetine HCl (Prozac) 40 mg PO DAILY [facility] Stop: 08/23/18 09:01 Last Admin: 02/22/18 08:36 Dose: 40 mg Fluticasone Propionate (Flonase) 100 mcg NS DAILY [facility] PRN Reason: Protocol Stop: 08/23/18 10:16 Last Admin: 02/22/18 08:36 Dose: 100 mcg Guaifenesin (Mucinex) 600 mg PO BID [facility] Stop: 08/23/18 14:31 Last Admin: 02/22/18 08:36 Dose: Not Given HCTZ/Losartan Potassium (Hyzaar 50/12.5) 2 each PO DAILY [facility] Stop: 08/23/18 09:01 Last Admin: 02/22/18 08:35 Dose: 2 each Heparin Sodium (Porcine) (Heparin) 5,000 unit SQ Q12HCO [facility] Stop: 08/23/18 06:01 Last Admin: 02/22/18 05:37 Dose: 5,000 unit Sodium Chloride (0.9 % Sodium Chloride) 1,000 mls @ 75 mls/hr IVC .[id number] [facility] Stop: 08/24/18 13:16 Last Admin: 02/22/18 13:42 Dose: 75 mls/hr Levetiracetam (Keppra) 1,000 mg PO BID [facility] Stop: 08/22/18 21:01 Last Admin: 02/22/18 08:35 Dose: 1,000 mg Levothyroxine Sodium (Synthroid) 125 mcg PO 0630 [facility] Stop: 08/23/18 06:31 Last Admin: 02/22/18 05:37 Dose: 125 mcg Loratadine (Claritin) 10 mg PO DAILY [facility] PRN Reason: Protocol Stop: 08/23/18 10:16 Last Admin: 02/22/18 08:36 Dose: 10 mg Metoprolol Succinate (Toprol Xl) 25 mg PO DAILY [facility] Stop: 08/23/18 09:01 Last Admin: 02/22/18 08:36 Dose: 25 mg Montelukast Sodium (Singulair) 10 mg PO HS [facility] Stop: 08/22/18 21:01 Last Admin: 02/21/18 21:08 Dose: 10 mg Naloxone HCl (Narcan) 0.4 mg IVP Q2MIN PRN PRN Reason: SEE COMMENTS Stop: 08/22/18 18:07 Omeprazole (Prilosec) 20 mg PO DAILY [facility] PRN Reason: Protocol Stop: 08/23/18 09:01 Last Admin: 02/22/18 08:35 Dose: 20 mg Prednisone (Prednisone) 40 mg PO DAILY [facility] Stop: 08/23/18 09:01 Last Admin: 02/22/18 08:36 Dose: 40 mg Tiotropium [place] (Spiriva) 18 mcg IH HS [facility] Stop: 08/22/18 20:48 Last Admin: 02/21/18 20:32 Dose: 18 mcg Topiramate (Topamax) 50 mg PO BID [facility] Stop: 08/22/18 21:01 Last Admin: 02/22/18 08:35 Dose: 50 mg Vitamin D (Vitamin D) 1,000 unit PO DAILY [facility] Stop: 08/23/18 09:01 Last Admin: 02/22/18 08:36 Dose: 1,000 unit - Imaging and Cardiology Stress Test: report reviewed - EKG Interpretation EKG results cardiology: personally reviewed (SR, anterolateral changes.), other (12 hr tele AVG HR 63, SR) Consult Discharge Plan - Plan Referrals: Anibal Recinos MD [Primary Care Provider] - 03/02/18 2:00 pm (Requested a follow up appoinment in 7- 10 days with Anibal Denny. )
--- NOTE | 2018-02-22 17:33 | Electrocardiograph Report ---
[address] [place], [place] [address] Test Date: 2018-02-20 Pat Name: Lynda Livingston Department: 104 Room: 3B37 Gender: F Loading Dock Helper: EKP : 1965 Requested By: Mery Salgado Order Number: [id number] Reading MD: Darcy Dejesus Measurements Intervals [place] Rate: 79 P: 21 KS: 163 QRS: 5 QRSD: 93 T: -3 QT: 393 QTc: 428 Interpretive Statements SINUS RHYTHM MODERATE T-WAVE ABNORMALITY, CONSIDER ANTERIOR ISCHEMIA Electronically Signed On 02-22-2018 17:32:01 EDT by Darcy Dejesus
[2018-02-22] MEDS ORDERED: Perflutren Lipid Microsphere 1.3 ML in 0.9 % Sodium Chloride 8.7 ML IVP ONE (21:19)
[2018-02-22] MEDS: Tiotropium 18 MCG inhalation IH SCH (21:30)
[2018-02-23] MEDS ORDERED: methylPREDNISolone 125 MG/2 ML VIAL IVP ONE (00:05)
--- NOTE | 2018-02-23 00:15 | Event Note ---
Date of Encounter: 02/23/18 Time of Encounter: 23:52 Alerted by pts. nurse Lilly RN that pt. was having blood-tinged sputum. Went to see pt. who was resting in bed and coughing repeatedly. Pt. stated that her throat was sore and that she had not had any recent breathing txs. Stated that she has had a cough for several weeks and experienced several episodes, including last night, of blood-tinged sputum. Pt. has COPD hx. Respiratory Infection panel showed positive Chlamydophila pneumoniae. Pts. doxycycline stopped and IVPB azithromycin ordered as first-line tx for Chlamydophila pneumoniae. 125 mg IVP Solu-Medrol ordered ONCE to be followed up w/60 mg IVP Q8HR. 1V portable CXR ordered. Stat sputum culture ordered of pts. sputum sample at bedside. Pts. DuoNebs changed from PRN to scheduled. Pt. to be monitored closely overnight.
[2018-02-23] MEDS: Azithromycin 500 MG in D5% in Water 250 ML IVPB SCH (00:28)
[2018-02-23] MEDS: Ipratropium/Albuterol Neb 3 ML IH SCH ×6 (03:56→23:29)
[2018-02-23] MEDS: 0.9 % Sodium Chloride 1,000 ML IVC SCH ×2 (04:19→16:47)
[2018-02-23] MEDS: *HR* Heparin 5,000 UNIT/ML VIAL SQ SCH ×2 (05:25→16:48)
[2018-02-23] MEDS ORDERED: methylPREDNISolone 125 MG/2 ML VIAL IVP SCH (08:00)
[2018-02-23] MEDS: Carbidopa/Levodopa 25/100 TABLET PO SCH (08:10)
[2018-02-23] MEDS: FLUoxetine 20 MG CAPSULE PO SCH (08:10)
[2018-02-23] MEDS: Loratadine 10 MG TABLET PO SCH (08:11)
[2018-02-23] MEDS: Losartan/HCTZ 50-12.5 TABLET PO SCH (08:11)
[2018-02-23] MEDS: Cholecalciferol (D-3) 1,000 UNIT TABLET PO SCH (08:11)
[2018-02-23] MEDS: Aspirin 81 MG TAB.CHEW PO SCH (08:11)
[2018-02-23] MEDS: Metoprolol XL (24 HR) Succ 25 MG TAB.ER.24H PO SCH (08:12)
[2018-02-23] MEDS: Topiramate 25 MG TABLET PO SCH ×2 (08:12→21:33)
[2018-02-23] MEDS: levETIRAcetam 250 MG TABLET PO SCH ×2 (08:12→21:33)
[2018-02-23 08:29] LABS: Basophils % 0.2 %; Hematocrit 42.4 % (35.3-44.9); Hemoglobin 13.1 g/dL (11.5-15.4); Immature Granulocytes % 0.7 % (0-4); Lymphocytes # 2.1 K/mcL (0.6-4.6); Lymphocytes % 14.4 %; Mean Corpuscular HGB Conc 30.9 g/dL (31.6-35.5); Mean Corpuscular Hemoglobin 25.2 pg (28.0-33.3); Mean Corpuscular Volume 81.7 fL (83.0-100.0); Mean Platelet Volume 10.7 fL (9.4-12.4); Monocytes # 0.2 K/mcL (0.0-1.3); Monocytes % 1.1 %; Platelet Count 284 K/mcL (140-400); Red Blood Count 5.19 M/mcL (3.82-4.97); Red Cell Distribution Width 15.7 % (11.5-14.5); Segmented Neutrophils % 83.6 %
[2018-02-23 08:48] LABS: BUN/Creatinine Ratio 15 (6-26); Blood Urea Nitrogen 17 mg/dL (6-20); Carbon Dioxide 25 mEq/L (23-29); Chloride 104 mEq/L (98-107); Glucose 158 mg/dL (70-105); Osmolality,Calculated 287 (280-300); Potassium 3.7 mEq/L (3.5-5.1); Sodium 136 mEq/L (136-145); eGFR For Non-African Americans 51 (> 60)
[2018-02-23] MEDS: Fluticasone Propionate Nasal 50 MCG/SPRAY BOTTLE NS SCH (10:15)
--- NOTE | 2018-02-23 10:15 | Cardiology Progress Note ---
Date of Encounter: 02/23/18 Time of Encounter: 10:13 Assessment and Plan (1) Abnormal stress test Current Visit: Yes Status: Acute Underwent 2 day stress test for abnormal ECG--perfusion study negative for infarct. Reversible mild low intensity perfusion defect in apical/mid anterior/ anterolateral wall with low SDS score (2) suggests either artifact or minimal ischemia. Risk factors for CAD include HTN, HLD, obesity, family hx--father from [place] at age 57. Serology positive for chladmydophila pneumoniae. Leukocytosis--WBC 15.6. Creatinine 1.23 today. Recheck labs in AM. TTE EF preserved with normal wall motion. Discussed LHC vs medical management of mildly abnormal stress test. Given acute PNA, hemoptysis, leukocytosis, recommend medical management with close outpt follow-up. Can consider outpt LHC if warranted. Continue ASA, Statin, BB. Cardiology signing off. Reconsult PRN. Will coordinate outpt follow-up with entry driver operator in 2-3 weeks. (2) Abnormal EKG Current Visit: Yes Status: Acute EKG with new ST depression/inversions. Repeated, appears the same as on admission. Denies chest pain, but reported bilateral arm pain prior to admission. Underwent 2 day stress test today--suggests either artifact or minimal ischemia. TTE EF preserved. As above, medical management for now given PNA, with close outpt follow-up for re-evaluation. (3) PNA (pneumonia) Current Visit: Yes Status: Acute Presented with productive cough and dyspnea, chills. Serology positive for chlamydophila pneumoniae. Management per primary team. Qualifiers: Pneumonia type: due to unspecified organism Laterality: unspecified laterality Lung location: unspecified part of lung Qualified Code(s): J18.9 - Pneumonia, unspecified organism Discussion w patient/family: The assessment and plan as outlined above was discussed with the patient and/or family members who expressed understanding and agreement. All questions were answered. Thank you for involving us in the care of your patient. Please call with any questions. I will discuss all the above with Dr. Dejesus and make changes as necessary. Subjective Principal diagnosis: PNA Interval history: Episode of hemoptysis last night. Denies chest pain or any recurrent arm pain. Objective Vital Signs, Last 4 Hours Temp Pulse Resp BP Pulse Ox 02/23/18 07:14 97.7 F 74 18 152/81 90 Vital Signs Temp Pulse Resp BP Pulse Ox 02/23/18 07:14 97.7 F 74 18 152/81 90 02/23/18 04:20 97.7 F 67 17 137/78 93 02/23/18 03:56 16 84 02/22/18 23:21 97.9 F 68 15 132/79 94 02/22/18 21:30 16 90 02/22/18 18:41 98.4 F 68 15 112/69 94 02/22/18 16:38 98.1 F 69 18 129/79 92 02/22/18 11:31 98.7 F 68 19 144/85 90 Intake and Output 02/22/18 02/23/18 02/23/18 23:59 07:59 15:59 Intake Total 250 / 250 1250 / 1250 Output Total 600 / 600 Balance 250 / 250 650 / 650 Intake: IV Fluids 1250 / 1250 0.9 % Sodium Chloride 1,000 ML 1000 / 1000 @ 75 mls/hr IVC .[id number] [facility] Rx #:[id number] Zithromax 500 mg In Dextrose 5% 250 / 250 250 ML @ 252 mls/hr IVPB Q24H [facility] Rx#:[id number] Oral 250 / 250 0 / 0 Output: Urine 600 / 600 Other: Meal Dinner Percent of Meal Consumed 80% # Voids 2 Weight 131.6 kg Patient Weight 02/23/18 23:59 Weight 131.6 kg General: Conversant, No Apparent Distress HEENT: Atraumatic, Normocephaly, Mucus Membranes Moist Neck: No JVD, Normal carotid pulses Cardiac: Reg Rate and Rhythm, Normal S1 and S2, No Murmur Lungs: Other (diminished) Neuro: Alert and responsive, No focal deficits noted Abdomen: Soft, Non-Tender Skin: No rashes noted on visualized skin Musculoskeletal: No Chest Wall Tenderness Extremities: No Clubbing, No Cyanosis, No Edema, Normal Pulses Results 02/23/18 08:17 02/23/18 08:17 Lab Results 02/22/18 02/22/18 02/23/18 10:16 10:16 08:17 WBC 15.6 H 14.4 H Hgb 13.1 13.1 Hct 42.5 42.4 Plt Count 299 284 Sodium 139 Potassium 3.8 Chloride 104 Carbon Dioxide 27 BUN 14 Creatinine 1.23 H Glucose 104 Calcium 9.5 02/23/18 08:17 WBC Hgb Hct Plt Count Sodium 136 Potassium 3.7 Chloride 104 Carbon Dioxide 25 BUN 17 Creatinine 1.12 Glucose 158 H Calcium 9.0 Short CBC 02/23/18 02/22/18 Range/Units 08:17 10:16 WBC 14.4 H 15.6 H (4.3-11.1) K/mcL Hgb 13.1 13.1 (11.5-15.4) g/dL Hct 42.4 42.5 (35.3-44.9) % Plt Count 284 299 (140-400) K/mcL Neutrophils # 12.0 H 10.0 H (1.6-8.9) K/mcL BMP 02/23/18 02/22/18 Range/Units 08:17 10:16 Sodium 136 139 (136-145) mEq/L Potassium 3.7 3.8 (3.5-5.1) mEq/L Chloride 104 104 (98-107) mEq/L Carbon Dioxide 25 27 (23-29) mEq/L BUN 17 14 (6-20) mg/dL Creatinine 1.12 1.23 H (0.60-1.20) mg/dL Glucose 158 H 104 (70-105) mg/dL Calcium 9.0 9.5 (8.6-10.3) mg/dL Impressions Echocardiogram 02/22/18 14:42 Impressions: LVEF 60-65%. Normal right ventricular structure and function. Trace pulmonic regurgitation. Unable to estimate RVSP due to lack of TR jet. Left Ventricular Wall Motion: Rest Echo Findings All wall segments showed normal motion. Findings: Study Quality * Technically adequate exam. ECG Findings * Normal sinus rhythm. Left Ventricle * LVEF 60-65%. * Normal LV chamber size, wall thickness and function. * Normal left ventricular diastolic function. Right Ventricle * Normal right ventricular structure and function. Left Atrium * Normal left atrial size. Right Atrium * Normal right atrial size. Interatrial Septum * No evidence of PFO by color Doppler. Aortic Valve * Trileaflet aortic valve. * Normal aortic valve structure. * No aortic regurgitation. * No aortic stenosis. Mitral Valve * Normal mitral valve structure. * No mitral regurgitation. * No mitral stenosis. Tricuspid Valve * Normal tricuspid valve structure. * No tricuspid regurgitation. * No tricuspid stenosis. * Unable to estimate RVSP due to lack of TR jet. Pulmonic Valve * Trace pulmonic regurgitation. * Normal pulmonic valve structure. Aorta * Normally sized aortic root. Pericardium * The pericardium appears normal. IVC * Normal IVC dimensions and inspiratory collapse. Pulmonary Artery * Normal visualized portions of the main pulmonary artery. Chest X-Ray 02/23/18 00:05 IMPRESSION: New left lower lobe pulmonary opacity may represent atelectasis and/or pleural effusion. Superimposed pneumonia would not be excluded. Consider short interval follow-up with lateral chest radiograph. D/ / 02/23/2018 08:06:08 Sigifredo Boudreaux MD / [facility] Interpreting Provider: Sigifredo Boudreaux MD Active Medications Albuterol/Ipratropium (Duoneb) 3 ml IH [id number] [facility] Stop: 08/25/18 04:01 Last Admin: 02/23/18 08:06 Dose: 3 ml Aspirin (Aspirin) 81 mg PO DAILY [facility] Stop: 08/25/18 09:01 Last Admin: 02/23/18 08:11 Dose: 81 mg Atorvastatin Calcium (Lipitor) 20 mg PO HS [facility] Stop: 08/22/18 21:01 Last Admin: 02/22/18 20:35 Dose: 20 mg Carbidopa/Levodopa (Sinemet) 1 each PO DAILY [facility] Stop: 08/23/18 09:01 Last Admin: 02/23/18 08:10 Dose: 1 each Fluoxetine HCl (Prozac) 40 mg PO DAILY [facility] Stop: 08/23/18 09:01 Last Admin: 02/23/18 08:10 Dose: 40 mg Fluticasone Propionate (Flonase) 100 mcg NS DAILY [facility] PRN Reason: Protocol Stop: 08/23/18 10:16 Last Admin: 02/22/18 08:36 Dose: 100 mcg Guaifenesin (Mucinex) 600 mg PO BID [facility] Stop: 08/23/18 14:31 Last Admin: 02/23/18 08:10 Dose: 600 mg HCTZ/Losartan Potassium (Hyzaar 50/12.5) 2 each PO DAILY [facility] Stop: 08/23/18 09:01 Last Admin: 02/23/18 08:11 Dose: 2 each Heparin Sodium (Porcine) (Heparin) 5,000 unit SQ Q12HCO [facility] Stop: 08/23/18 06:01 Last Admin: 02/23/18 05:25 Dose: Not Given Sodium Chloride (0.9 % Sodium Chloride) 1,000 mls @ 75 mls/hr IVC .[id number] [facility] Stop: 08/24/18 13:16 Last Admin: 02/23/18 04:19 Dose: 75 mls/hr Azithromycin 500 mg/ Dextrose 250 mls @ 252 mls/hr IVPB Q24H [facility] Stop: 08/25/18 01:01 Last Infusion: 02/23/18 02:08 Dose: Infused Levetiracetam (Keppra) 1,000 mg PO BID [facility] Stop: 08/22/18 21:01 Last Admin: 02/23/18 08:12 Dose: 1,000 mg Levothyroxine Sodium (Synthroid) 125 mcg PO 0630 [facility] Stop: 08/23/18 06:31 Last Admin: 02/23/18 05:24 Dose: 125 mcg Loratadine (Claritin) 10 mg PO DAILY [facility] PRN Reason: Protocol Stop: 08/23/18 10:16 Last Admin: 02/23/18 08:11 Dose: 10 mg Methylprednisolone (Solu-Medrol) 60 mg IVP Q8HR [facility] Stop: 08/25/18 08:01 Last Admin: 02/23/18 08:12 Dose: 60 mg Metoprolol Succinate (Toprol Xl) 25 mg PO DAILY [facility] Stop: 08/23/18 09:01 Last Admin: 02/23/18 08:12 Dose: 25 mg Montelukast Sodium (Singulair) 10 mg PO HS [facility] Stop: 08/22/18 21:01 Last Admin: 02/22/18 20:35 Dose: 10 mg Naloxone HCl (Narcan) 0.4 mg IVP Q2MIN PRN PRN Reason: SEE COMMENTS Stop: 08/22/18 18:07 Omeprazole (Prilosec) 20 mg PO DAILY [facility] PRN Reason: Protocol Stop: 08/23/18 09:01 Last Admin: 02/23/18 08:11 Dose: 20 mg Tiotropium [place] (Spiriva) 18 mcg IH [facility] Stop: 08/22/18 20:48 Last Admin: 02/22/18 21:30 Dose: 18 mcg Topiramate (Topamax) 50 mg PO BID [facility] Stop: 08/22/18 21:01 Last Admin: 02/23/18 08:12 Dose: 50 mg Vitamin D (Vitamin D) 1,000 unit PO DAILY [facility] Stop: 08/23/18 09:01 Last Admin: 02/23/18 08:11 Dose: 1,000 unit - Imaging and Cardiology Stress Test: report reviewed Echo: report reviewed - EKG Interpretation EKG results cardiology: other (12 hr tele AVG HR 70, SR, no significant pauses or arrhythmias) Consult Discharge Plan - Plan Referrals: Anibal Recinos MD [Primary Care Provider] - 03/02/18 2:00 pm (Requested a follow up appoinment in 7- 10 days with Anibal Denny. )
--- NOTE | 2018-02-23 15:55 | Internal Med Progress Note ---
Hospitalist Progress Note - Encounter Date of Encounter: 02/23/18 Time of Encounter: 10:00 - Subjective Interval History: Patient was seen and examined at bedside apparently overnight patient did have episodes of coughing as well as a episode of hemoptysis she was started on steroids as well as antibiotic changed to Zithromax. - Exam Vitals: Temp Pulse Resp BP Pulse Ox 97.7 F 86 18 111/60 92 02/23/18 15:21 02/23/18 15:21 02/23/18 15:21 02/23/18 15:21 02/23/18 15:21 Exam: General: Pt resting quietly on bed, no distress. Skin: pwd, no rashes, lesions, redness Neurological: Pt is alert and awake, oriented x 3, Speech is clear, PERRLA, EOMI , no nystagmus, no pronator drift. strength equal x 4 extremities HEENT: mucous mumbranes moist, no conjuctival pallor Neck: supple, no tracheal deviation, no lymphadenopathy, tenderness, no thyromegaly Heart: S1S2 heard without gallops, clicks, murmurs, no bradycardia or tachycardia, pt has no peripheral edema, pedal and radial pulses palpable bilaterally. Lungs: clear throughout without wheezing, rales, or ronchi, respirations are unlabored, lungs sounds diminished. Abdomen: soft and non tender with bowel sound present, no hepatomegaly. Psych: Normal affect with good eye contact - Assessment and Plan (1) Abnormal EKG Current Visit: Yes Status: Acute Assessment and Plan: ER reported new anteroseptal ST depression and T wave inversions on EKG. Patient denies chest pain. Troponin is negative 3. Continue telemetry Stress test abnormal - cardiology consulted - repeat EKG -repeat appears the same as on admission Continue to monitor labs and vitals. (2) Increased white blood cell count Current Visit: Yes Status: Acute Assessment and Plan: unclear etiology. CXR negative for acute process. Pt is not on steroids. 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 02/23 white count is down some today patient was started on steroids which we will continue to monitor closely (3) Abnormal stress test Current Visit: Yes Status: Acute Assessment and Plan: 1 Underwent 2 day stress test for abnormal ECG--perfusion study negative for infarct. Reversible mild low intensity perfusion defect in apical/mid anterior/ anterolateral wall with low SDS score (2) suggests either artifact or minimal ischemia.-consulted cardiology LHC vs medical management of mildly abnormal stress test. cont Statin and BB. Add 81mg daily ASA. - currently has pneumonia will need to resolve before stress test can be performed EKG, Echo 02/23 Cardiology discussed with patient left heart catheter versus medical management. Due to acute pneumonia hemoptysis and leukocytosis recommending medical management with close outpatient follow-up per cardiology cardiology recommending continue aspirin and statin beta desean follow-up with interventional cardiologists and 2-3 weeks (4) PNA (pneumonia) Current Visit: Yes Status: Acute Assessment and Plan: 1 percent percent with productive cough green sputum dyspnea and chills. Initially treated for bronchitis on Doxycycline- resp panel positive for Chlamydophila pneumonia - CXR negative elevated white count 02/23 overnight patient did experience episodes of coughing she did have blood- tinged sputum complaining of sore throat. Has a history of COPD doxycycline was stopped and was started on azithromycin as well as IV Solu-Medrol chest x-ray 02/23/2018 IMPRESSION: New left lower lobe pulmonary opacity may represent atelectasis and/or pleural effusion. Superimposed pneumonia would not be excluded. Consider short interval follow-up with lateral chest radiograph. - Time Spent with Patient Total time spent is greater than 50% in coordination of care (as documented) at patient's floor/unit and/or counseling patient: Internal Medicine: Result - Labs CBC & Chem 7: 02/23/18 08:17 02/23/18 08:17 Labs: Short CBC 02/23/18 Range/Units 08:17 WBC 14.4 H (4.3-11.1) K/mcL Hgb 13.1 (11.5-15.4) g/dL Hct 42.4 (35.3-44.9) % Plt Count 284 (140-400) K/mcL Neutrophils # 12.0 H (1.6-8.9) K/mcL BMP 02/23/18 08:17 Sodium 136 Potassium 3.7 Chloride 104 Carbon Dioxide 25 BUN 17 Creatinine 1.12 Glucose 158 H Calcium 9.0 - Impressions Impressions Echocardiogram 02/22/18 14:42 Impressions: LVEF 60-65%. Normal right ventricular structure and function. Trace pulmonic regurgitation. Unable to estimate RVSP due to lack of TR jet. Left Ventricular Wall Motion: Rest Echo Findings All wall segments showed normal motion. Findings: Study Quality * Technically adequate exam. ECG Findings * Normal sinus rhythm. Left Ventricle * LVEF 60-65%. * Normal LV chamber size, wall thickness and function. * Normal left ventricular diastolic function. Right Ventricle * Normal right ventricular structure and function. Left Atrium * Normal left atrial size. Right Atrium * Normal right atrial size. Interatrial Septum * No evidence of PFO by color Doppler. Aortic Valve * Trileaflet aortic valve. * Normal aortic valve structure. * No aortic regurgitation. * No aortic stenosis. Mitral Valve * Normal mitral valve structure. * No mitral regurgitation. * No mitral stenosis. Tricuspid Valve * Normal tricuspid valve structure. * No tricuspid regurgitation. * No tricuspid stenosis. * Unable to estimate RVSP due to lack of TR jet. Pulmonic Valve * Trace pulmonic regurgitation. * Normal pulmonic valve structure. Aorta * Normally sized aortic root. Pericardium * The pericardium appears normal. IVC * Normal IVC dimensions and inspiratory collapse. Pulmonary Artery * Normal visualized portions of the main pulmonary artery. Chest X-Ray 02/23/18 00:05 IMPRESSION: New left lower lobe pulmonary opacity may represent atelectasis and/or pleural effusion. Superimposed pneumonia would not be excluded. Consider short interval follow-up with lateral chest radiograph. D/ / 02/23/2018 08:06:08 Sigifredo Boudreaux MD / [facility] Interpreting Provider: Sigifredo Boudreaux MD Consult Discharge Plan - Plan Referrals: Anibal Recinos MD [Primary Care Provider] - 03/02/18 2:00 pm (Requested a follow up appoinment in 7- 10 days with Anibal Denny. ) (2) Increased white blood cell count Qualifiers: Leukocytosis type: unspecified Qualified Code(s): D72.829 - Elevated white blood cell count, unspecified (4) PNA (pneumonia) Qualifiers: Pneumonia type: due to unspecified organism Laterality: unspecified laterality Lung location: unspecified part of lung Qualified Code(s): J18.9 - Pneumonia, unspecified organism
[2018-02-23] MEDS: MethylPREDNISolone 40 MG/ML VIAL IVP SCH (16:46)
[2018-02-24] MEDS: MethylPREDNISolone 40 MG/ML VIAL IVP SCH ×2 (00:02→07:52)
[2018-02-24] MEDS: Azithromycin 500 MG in D5% in Water 250 ML IVPB SCH (00:02)
[2018-02-24 04:26] LABS: Basophils % 0.2 %; Hemoglobin 12.6 g/dL (11.5-15.4); Lymphocytes # 2.1 K/mcL (0.6-4.6); Lymphocytes % 10.7 %; Mean Corpuscular HGB Conc 30.7 g/dL (31.6-35.5); Mean Corpuscular Hemoglobin 25.1 pg (28.0-33.3); Mean Corpuscular Volume 81.7 fL (83.0-100.0); Mean Platelet Volume 10.7 fL (9.4-12.4); Monocytes # 0.9 K/mcL (0.0-1.3); Monocytes % 4.5 %; Neutrophils # 16.5 K/mcL (1.6-8.9); Platelet Count 278 K/mcL (140-400); Red Blood Count 5.02 M/mcL (3.82-4.97); Segmented Neutrophils % 83.6 %
[2018-02-24 04:47] LABS: BUN/Creatinine Ratio 17 (6-26); Blood Urea Nitrogen 18 mg/dL (6-20); Calcium 9.1 mg/dL (8.6-10.3); Carbon Dioxide 26 mEq/L (23-29); Chloride 108 mEq/L (98-107); Glucose 145 mg/dL (70-105); Osmolality,Calculated 292 (280-300); Potassium 3.8 mEq/L (3.5-5.1); Sodium 139 mEq/L (136-145); eGFR For Non-African Americans 53 (> 60)
[2018-02-24] MEDS: Ipratropium/Albuterol Neb 3 ML IH SCH ×2 (05:01→08:11)
[2018-02-24] MEDS: *HR* Heparin 5,000 UNIT/ML VIAL SQ SCH (06:26)
[2018-02-24] MEDS ORDERED: Acetaminophen 325 MG TABLET PO PRN (06:42)
[2018-02-24 07:21] VITALS: BP 148/81
[2018-02-24] MEDS: Losartan/HCTZ 50-12.5 TABLET PO SCH (07:50)
[2018-02-24] MEDS: Topiramate 25 MG TABLET PO SCH (07:50)
[2018-02-24] MEDS: Carbidopa/Levodopa 25/100 TABLET PO SCH (07:50)
[2018-02-24] MEDS: Aspirin 81 MG TAB.CHEW PO SCH (07:51)
[2018-02-24] MEDS: FLUoxetine 20 MG CAPSULE PO SCH (07:51)
[2018-02-24] MEDS: Loratadine 10 MG TABLET PO SCH (07:51)
[2018-02-24] MEDS: Metoprolol XL (24 HR) Succ 25 MG TAB.ER.24H PO SCH (07:51)
[2018-02-24] MEDS: Cholecalciferol (D-3) 1,000 UNIT TABLET PO SCH (07:51)
[2018-02-24] MEDS: levETIRAcetam 250 MG TABLET PO SCH (07:51)
[2018-02-24] MEDS: 0.9 % Sodium Chloride 1,000 ML IVC SCH (08:03)
[2018-02-24] MEDS: Fluticasone Propionate Nasal 50 MCG/SPRAY BOTTLE NS SCH (09:36)
--- NOTE | 2018-02-24 10:49 | Discharge Summary ---
- NOTES TO OUTPATIENT PROVIDER Notes to Outpatient Provider: f/u with PCP within a week. Orders not resulted at time of discharge: Pending orders 02/23/18 00:00 Culture,Sputum with Gram Stain [RM] Stat 02/25/18 04:00 CBC [Complete Blood Count] [HEME] AM 0400 Chem 7 [Basic Metabolic Panel] AM 0400 02/26/18 04:00 CBC [Complete Blood Count] [HEME] AM 0400 Chem 7 [Basic Metabolic Panel] AM 0400 Date of Encounter: 02/24/18 Time of Encounter: 10:45 - Discharge Diagnosis (1) Abnormal EKG Priority: Primary Status: Acute (2) Increased white blood cell count Priority: Primary Status: Acute Qualifiers: Leukocytosis type: unspecified Qualified Code(s): D72.829 - Elevated white blood cell count, unspecified (3) PNA (pneumonia) Priority: Primary Status: Acute Qualifiers: Pneumonia type: due to unspecified organism Laterality: unspecified laterality Lung location: unspecified part of lung Qualified Code(s): J18.9 - Pneumonia, unspecified organism (4) Abnormal stress test Priority: Primary Status: Acute Hospital course: Ms. Livingston is a 53 year old female with past medical history of hypertension , hyperlipidemia, CVA, COPD, asthma, hypothyroid, depression, and seizures presented from urgent care after x-rays suspicious for pneumonia. she has been experiencing productive cough of green sputum and shortness of breath and wheezing sore throat. . Respiratory panel was positive for chlamydia pneumonia was on doxycycline switched to azithromycin as well as IV Solu-Medrol. Repeat chest x-ray new left lower lobe pulmonary opacity. symptoms have improved significantly with treatment. She was instructed to continue take oral azithromycin for 7 more days. She was instructed to continue take oral steroids for 4 more days and then stop. She will follow-up with PCP as scheduled. Discharge discussed with: patient Time spent discussing smoking cessation with patient: more than 10 minutes - Time Spent with Patient Total time spent providing and/or coordinating discharge services: Greater than 30 minutes - Discharge Medications Prescriptions: Azithromycin [Zithromax] 500 mg PO DAILY #7 tablet predniSONE [PredniSONE] 40 mg PO DAILY #4 tablet Home Medications: Atorvastatin Calcium [Lipitor] 20 mg PO HS 09/22/17 [History] Carbidopa/Levodopa [Carbidopa-Levodopa 25-100 Tab] 1 tab PO DAILY 09/22/17 [ History] Cholecalciferol (D-3) [Vitamin D] 1,000 unit PO DAILY 09/22/17 [History] LevETIRAcetam [Keppra] 1,000 mg PO BID 09/22/17 [History] Levothyroxine Sodium 125 mcg PO DAILY 09/22/17 [History] Losartan/Hydrochlorothiazide [Losartan-Hctz 100-25 mg Tab] 1 tab PO DAILY [History] Metoprolol Succinate [Toprol Xl] 25 mg PO DAILY 09/22/17 [History] Montelukast [Singulair] 10 mg PO HS 09/22/17 [History] [place]-3/Dha/Epa/Fish Oil [[place] 3 500 Softgel] 1 cap PO DAILY 09/22/17 [History] Omeprazole [PriLOSEC] 20 mg PO DAILY 09/22/17 [History] Tiotropium [Spiriva] 18 mcg PO DAILY 09/22/17 [History] Topiramate [Topamax] 50 mg PO BID 09/22/17 [History] FLUoxetine HCl [Fluoxetine HCl] 40 mg PO DAILY 02/20/18 [History] Azithromycin [Zithromax] 500 mg PO DAILY #7 tablet 02/24/18 [Rx] predniSONE [PredniSONE] 40 mg PO DAILY #4 tablet 02/24/18 [Rx] Allergies/Adverse Reactions: 3 Allergy/AdvReac Type Severity Reaction Status Date / Time No Known Allergies Allergy Verified 02/20/18 16:36 Date of admission: 02/22/18 09:10 Primary care physician: Anibal Recinos MD Consults: 02/22/18 13:45 Consult to Cardiology [CONS] Routine Comment: Consulting Provider: Card[facility] [place] Reason for Consult: stress test-abnormal Time Notified: 13:46 Call Completed: Yes Anticipated date of discharge: 02/24/18 - Constitutional Vitals: Temp Pulse Resp BP Pulse Ox 97.6 F 74 17 148/81 93 02/24/18 07:17 02/24/18 07:17 02/24/18 07:17 02/24/18 07:17 02/24/18 07:17 General appearance: Present: A&O X 3, answers questions appropriately Exam: PHYSICAL EXAMINATION: GENERAL APPEARANCE: The patient is alert, oriented and in no acute distress. HEENT: Head is normocephalic. The sinuses are nontender. Pupils are equal and reactive. The nares are patent. Oropharynx clear without lesions. NECK: Supple without lymphadenopathy. HEART: Regular rate and rhythm. LUNGS: No crackles or wheezes are heard. ABDOMEN: Soft, nontender, nondistended with good bowel sounds heard. Inguinal area is normal. EXTREMITIES: Without cyanosis, clubbing or edema. NEUROLOGICAL: Gross nonfocal. SKIN: Warm and dry without any rash. - Patient Status Disposition: Home, Self-Care Condition: Good Functional capacity at discharge: independent ambulation Overall status at discharge: patient is progressing back to baseline - Discharge Instructions Instructions: Prednisone (By mouth), Azithromycin (By mouth), Viral Pneumonia ( DC) Follow Up With: Anibal Recinos MD [Primary Care Provider] - 03/02/18 2:00 pm (Requested a follow up appoinment in 7- 10 days with Anibal Denny. ) - Diet and Activity Activity: increase activity as tolerated Diet: advance to your usual diet
[2018-02-25] MEDS ORDERED: predniSONE 20 MG TABLET PO SCH (09:00)
[2018-02-25] MEDS ORDERED: Azithromycin 250 MG TABLET PO SCH (09:00)
--- NOTE | 2018-02-26 14:46 | Electrocardiograph Report ---
[address] [place] [address] Test Date: 2018-02-22 Pat Name: Lynda Livingston Department: 113 Room: 3B37 Gender: F Psychology Physician: : [id number] Requested By: Devon Domingo Order Number: [id number] Reading MD: Darcy Dejesus Measurements Intervals Maria Stein Rate: 70 P: 21 CO: 152 QRS: 8 QRSD: 94 T: 24 QT: 405 QTc: 425 Interpretive Statements SINUS RHYTHM MODERATE T-WAVE ABNORMALITY, CONSIDER ANTERIOR ISCHEMIA Electronically Signed On 02-26-2018 14:44:39 EDT by Darcy Dejesus
== END 2018-02-24 11:23 | disposition home or self-care (01) | DRG 190 ==
LOC: 3BNU 13:32 → EMEROOARM 13:32 → 3BNU 17:45
PROVIDERS: ADMIT Internal Medicine; ATTEND Internal Medicine